=== PATIENT | male | born 1975 | race Two or more races ===

== ENCOUNTER 2021-05-15 11:54 | Outpatient (CLI) | payer SELFPAY ==
--- NOTE | 2021-05-15 12:00 | ECG_ITS ---
Measurements Intervals [place] Rate: 80 P: 60 RI: 156 QRS: 50 QRSD: 110 T: 28 QT: 363 QTc: 421 Interpretive Statements SINUS RHYTHM DELAYED PRECORDIAL R/S TRANSITION BORDERLINE ECG Electronically Signed On 05-15-2021 17:09:40 CDT by Anthony Navarrete D.O.
== END 2021-05-15 11:55 | disposition home or self-care (01) ==
PROVIDERS: PCP Family Medicine; Visit Provider Physician Assistant Medical
DX: R07.9 Chest pain, unspecified (principal); R94.31 Abnormal electrocardiogram [ECG] [EKG]
CPT/HCPCS: 93005

== ENCOUNTER 2021-06-01 08:55 | Outpatient (CLI) | payer SELFPAY ==
--- NOTE | ~2021-06-01 | NM_ITS ---
EXAMINATION: NM harmeet stress w perfusion DATE: 06/01/2021 12:27 INDICATION: Unspecified chest pain TECHNIQUE: Rest images were obtained following intravenous administration of 10 mCi Tc99m tetrofosmin (Myoview). The patient was infused intravenously with Lexiscan (Regadenoson). Then, 29.8 mCi Tc99m t etrofosmin (Myoview) was administered intravenously, and stress images were obtained. Data was recons tructed into short axis and horizontal and vertical long axis SPECT images. Gated SPECT images were a lso obtained. COMPARISON: None. FINDINGS: There is no definite reversible or fixed perfusion abnormality to suggest ischemia or infar ction. There is normal left ventricular chamber size, wall motion and ejection fraction. Left ventr icular ejection fraction measures >70%. IMPRESSION: 1. Normal myocardial perfusion at rest and during stress. 2. Left ventricular ejection fraction measuring >70%. Reviewed, dictated and finalized at location A.
--- NOTE | 2021-06-01 09:16 | EST_ITS ---
Patient Info Name: Christiano Guy Age: 46 years : 1975 Gender: Male Ht: 67 in Wt: 190 lbs BSA: 2.04 m2 Exam Date: 06/01/2021 10:48 AM Exam Location: [facility] Stress Patient Status: Outpatient Admit Date: 06/01/2021 Staff Ordering Physician: Adwoa Hannon Attending Provider: Adwoa Hannon Exercise Technologist: Shawna Waggoner RDCS Exercise Physician: Anthony Navarrete DO Exam Type: CA stress harmeet w NM Study Info Indications R07.9 - Chest pain, unspecified A regadenoson stress test was performed. Summary 1. 1. Negative lexiscan stress test for ischemic ST changes by ECG criteria. 2. 2. Stable hemodynamics throughout the test. 3. 3. Nuclear scan to follow and will be reported separately. Please correlate with it. 4. 4. Patient informed of the above results. Protocol: Lexiscan Stress ECG Details Stage: REST Duration (min): 6 min : 40 sec HR (bpm): 69 SBP (mmHg): 122 DBP (mmHg): 81 Stage: REST Duration (min): 13 min : 23 sec HR (bpm): 73 SBP (mmHg): 122 DBP (mmHg): 81 Stage: STAGE 1 Duration (min): 0 min : 59 sec HR (bpm): 109 SBP (mmHg): 118 DBP (mmHg): 94 Stage: RECOVERY Duration (min): 1 min : 0 sec HR (bpm): 113 SBP (mmHg): 141 DBP (mmHg): 80 Stage: RECOVERY Duration (min): 2 min : 0 sec HR (bpm): 102 SBP (mmHg): 141 DBP (mmHg): 80 Stage: RECOVERY Duration (min): 3 min : 0 sec HR (bpm): 106 SBP (mmHg): 136 DBP (mmHg): 81 Stage: RECOVERY Duration (min): 3 min : 20 sec HR (bpm): 102 SBP (mmHg): 136 DBP (mmHg): 81 Rest HR: 73 bpm Peak HR: 115 bpm Rest Sys BP: 122 mmHg Peak Sys BP: 141 mmHg Max Pred HR: 174 bpm % Max Pred HR: 66 % Target HR: 148 bpm Max RPP: 16,215 bpm*mmHg Termination Reason: Completed protocol Cardiac Symptoms: Shortness of breath Total Time: 1 min : 0 sec Rest Salgado BP: 81 mmHg Peak Salgado BP: 80 mmHg Total Dose: 0.4 mg Resting ECG Sinus rhythm. Stress ECG No ST changes. Arrhythmias None. Report Signatures
== END 2021-06-01 08:56 | disposition home or self-care (01) ==
PROVIDERS: PCP Family Medicine; Visit Provider Physician Assistant Medical
DX: R07.9 Chest pain, unspecified (principal)
CPT/HCPCS: 78452; 93017; A9502; J2785

== ENCOUNTER 2023-07-22 13:41 | Outpatient (CLI) | payer BC, SELFPAY ==
--- NOTE | ~2023-07-22 | MR_ITS ---
MRI of the left shoulder Technique: Axial proton-density fat-sat images, coronal proton density fat-sat and T2 fat-sat images, and sagittal T1-weighted and T2 fat-sat images were acquired. Clinical History: Pain Findings: There is minimal AC joint degenerative change. Coracoclavicular, coracoacromial, and coraco humeral ligaments are intact. There is a probable 3 mm focal low-grade articular surface partial tear at the anterior aspect of the distal infraspinatus tendon insertion. No high-grade partial or full-thickness tear of the supraspin atus or infraspinatus tendon is identified. Subscapularis tendon is intact. Tendon of the long head o f the biceps is intact. Glenoid labrum is intact, without evidence for tear. Inferior glenohumeral ligament is intact. No degenerative change or effusion of the glenohumeral join t. There is minimal fluid in the subacromial/subdeltoid bursa. No muscle atrophy or edema. Impression: 3 mm focal low-grade articular surface partial tear at the anterior aspect of the distal infraspinatu s tendon insertion. No high-grade partial or full-thickness rotator cuff tear seen. Minimal subacromial/subdeltoid bursitis. Reviewed, dictated and finalized at location . Impression: 3 mm focal low-grade articular surface partial tear at the anterior aspect of t he distal infraspinatus tendon insertion. No high-grade partial or full-thickne ss rotator cuff tear seen. Minimal subacromial/subdeltoid bursitis.
== END 2023-07-22 13:42 | disposition home or self-care (01) ==
PROVIDERS: PCP Family Medicine; Visit Provider Physician Assistant Medical
DX: S46.812A Strain of other muscles, fascia and tendons at shoulder and upper arm level, left arm, initial encounter (principal); M25.512 Pain in left shoulder; G89.29 Other chronic pain; T14.90XA Injury, unspecified, initial encounter
CPT/HCPCS: 73221

== ENCOUNTER 2025-11-08 10:11 | Outpatient (CLI) | payer BC, SELFPAY ==
--- NOTE | ~2025-11-08 | XR_ITS ---
XR knee LT 3V 11/08/2025 10:42 Indication: Left knee pain Procedure: 3 views left knee Comparison: No prior studies for comparison. Findings: There is anatomic alignment. No fracture, subluxation or dislocation. No joint effusion. Impression: 1: No significant bone or joint abnormality. Reviewed, dictated and finalized at location O. TROGRAPHIC ANALYST Impression: 1: No significant bone or joint abnormality.
--- OUTSIDE RECORDS SUMMARY | 2025-11-08 10:38 | XMS_ITS | Clinical Summary ---
Author Organization [facility] Address [address] [place] [address] Phone Care Team Providers Care Energy Derivatives Trader Name Role Phone Kang Bacon MD Primary Care Provider [phone] Allergies No known active allergies Medications DEXTROAMPHETAMI NE/AMPHETAMINE (ADDERALL ORAL) Take 20 mg by mouth . Active citalopram (CeleXA) 40 mg tablet Take 40 mg by mouth daily. Active LAMOTRIGINE ORAL Take 25 mg by mouth . Active ALPRAZolam (XANAX) 0.5 mg tablet Take 0.5 mg by mouth nightly as needed for Anxiety. Active atorvastatin (LIPITOR) 10 mg tablet Take by mouth late in the day. Active multivitamin (DAILY-DELICIA) tablet Take 1 Tablet by mouth daily. 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 Gender Identity Not on file Sexual Orientation Not on file 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 Not on file Not on file Not on file Last Filed Vital Signs Vital Sign Reading Time Taken Comments Blood Pressure 122/81 12/03/2017 10:07 AM JAILER/TRAINING OFFICER Pulse 83 12/03/2017 6:10 AM JAILER/TRAINING OFFICER Temperature 36.6 C (97.9 F) 12/03/2017 10:07 AM JAILER/TRAINING OFFICER Respiratory Rate 20 12/03/2017 10:07 AM JAILER/TRAINING OFFICER Oxygen Saturation 98% 12/03/2017 10:07 AM JAILER/TRAINING OFFICER Inhaled Oxygen Concentration - - Weight 90.7 kg (200 lb) 12/02/2017 2:51 PM JAILER/TRAINING OFFICER Height 170.2 cm (5' 7) 12/02/2017 2:51 PM JAILER/TRAINING OFFICER Body Mass Index 31.32 12/02/2017 2:51 PM JAILER/TRAINING OFFICER Plan of Treatment Health Maintenance Due Date Last Done Comments DTAP/TDAP/TD VACCINES (1 - Tdap) 1994 HEPATITIS B VACCINES (1 of 3 - 19+ 3-dose series) 03/11 COLORECTAL SCREENING 2020 Colorectal Cancer Screening 2020 FIT-DNA Q 3 years 2020 FIT/FOBT Q 1 year 2020 Flex Sig/CT Colonography Q 5 years 2020 ZOSTER VACCINE (1 of 2) 2025 INFLUENZA VACCINE (#1) 2025 Insurance [facility] [employer] Care Teams Energy Derivatives Trader Relationship Specialty Start Date End Date Kang Bacon MD [address] [place] [address] PCP - General Family Practice 12/05/17
== END 2025-11-08 10:12 | disposition home or self-care (01) ==
PROVIDERS: PCP Family Medicine
DX: M25.562 Pain in left knee (principal)
CPT/HCPCS: 73562